=== PATIENT | female | born 1950 | race Caucasian/White ===

== ENCOUNTER 2016-05-28 15:54 | Emergency (ER) | payer OTHER ==
[~2016-05-28] VITALS: Ht 165.1 cm; Wt 70.3 kg
[~2016-05-28 15:54] MED LIST: FUROSEMIDE20 MG PO; HYDROCORTISONE10 MG PO; KEFLEX500 MG PO; LEVOTHYROXIN0.175 MG PO; MULTIVITAMIN1 TAB PO; PERCOCET 325 MG1 TA2 PO
--- NOTE | 2016-05-28 16:57 | ED UPPER/LOWER EXTREMITY COMPL ---
History of Present Illness General Chief Complaint: Foot or Ankle Injury Stated Complaint: FOOT INJURY Source: patient Exam Limitations: no limitations Vital Signs & Intake/Output Vital Signs & Intake/Output ED Intake and Output 05/29 0000 05/28 1200 Intake Total Output Total Balance Patient 155 lb Weight Allergies Coded Allergies: ciprofloxacin (Severe, CAN'T BREATHE PER PT 05/28/16) codeine (Intermediate, HALLUCINATE PER PT 05/28/16) prednisone (Intermediate, HALLUCINATE PER PT 05/28/16) Reconcile Medications Furosemide 20 MG TABLET 1 TAB PO DAILY DIURETIC (Reported) Hydrocortisone 10 MG TABLET 1 TAB PO DAILY UNKNOWN (Reported) Levothyroxine Sodium 175 MCG TABLET 1 TAB PO DAILY THYROID (Reported) Meloxicam (Mobic) 7.5 MG TABLET 1 TAB PO DAILY INFLAMMATION Triage Note: TRIAGE: PT TO ER C/C PAIN TO L FOOT, ONSET SUNDAY MORNING, CONSTANT AND WORSENING SINCE ONSET. STATES WOKE UP WITH THE PAIN. DENIES ANY INJURY. STATES "I DON'T SEE ANYTHING BUT THAT DOESN'T MEAN THERE ISN'T SOMETHING THERE." PREFERS TO WAIT FOR EVAL BEFORE TAKING ANY PAIN MEDICATIONS. Triage Nurses Notes Reviewed? yes HPI: 65-year-old female with left posterior ankle pain at the Achilles region radiating into the heel that started this morning. She woke up with the symptoms, it is hard to walk and weight-bear. She is limping. She does not recall any injury or any trauma to the area previously. She has no numbness no weakness. She feels as though the ankle and posterior Achilles region is swollen. She is able to move the foot up and down. She has no knee pain. No redness. No history of gout. No fever or systemic symptoms (GLORIA CHEN,BRANDIN) Past History Travel History Traveled to [place] past 21 day No Medical History Any Pertinent Medical History? 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 No (BRANDIN CALERO) Review of Systems Review of Systems Constitutional: Reports: see HPI. EENTM: Reports: no symptoms. Respiratory: Reports: no symptoms. Cardiovascular: Reports: no symptoms. Gastrointestinal/Abdominal: Reports: no symptoms. Genitourinary: Reports: no symptoms. Musculoskeletal: Reports: see HPI. Skin: Reports: no symptoms. Neurological/Psychological: Reports: no symptoms. Hematologic/Endocrine: Reports: no symptoms. Immunological: Reports: no symptoms. All Other Systems: Reviewed and Negative (BRANDIN CALERO) Physical Exam Physical Exam General Appearance: well developed/nourished Comments: Well-developed well-nourished no apparent distress. HEENT: Atraumatic, extraocular motion intact Neck: Supple, no lymphadenopathy Back: Nontender Respiratory: No respiratory distress Extremities: No edema, full range of motion Neuro: Alert and oriented x3 Psych: Mood affect normal, normal memory normal judgment. Skin: Warm and dry, no rash on exposed skin Left lower extremity, tenderness to the left Achilles region and its insertion into the calcaneus. There is mild swelling in this area. There is no functional or palpable defect. Mild tenderness along the calcaneus medially and laterally, the plantar fascia insertion site is also mildly tender on palpation. There is no erythema or warmth. There is no ankle joint effusion. Neurovascularly intact (BRANDIN CALERO) Progress Differential Diagnosis: arterial insufficiency, cellulitis, CHF, compartment syndrome, contusion, dislocation, DVT, fracture, gout, septic arthritis, sprain, tendon injury Plan of Care: Orders Procedure Date/time Status XRY-ANKLE 3 OR MORE VIEWS L 05/28 1642 Active Diagnostic Imaging: Viewed by Me: Radiology Read. Discussed w/RAD: Radiology Read. Radiology Impression: PATIENT: MADHU HALL PRESENT AGE: 65 PATIENT ACCOUNT NO: [id number] : 48 LOCATION: [facility] ORDERING PHYSICIAN: BRANDIN CHEN SERVICE DATE: 05/28/16 EXAM TYPE : RAD - XRY-ANKLE 3 OR MORE VIEWS L EXAMINATION: XR ANKLE, LEFT CLINICAL INFORMATION: Posterior pain without trauma. COMPARISON: None TECHNIQUE: AP, lateral, and mortise views of the left ankle. FINDINGS: Bony alignment and mineralization are normal. The ankle mortise is intact. No fracture or dislocation is seen. Boehler's angle is normal. There are moderate posterior and plantar calcaneal spurs. There is no left ankle joint effusion. There is moderate soft tissue swelling adjacent to the medial malleolus. IMPRESSION: 1. No left ankle fracture, dislocation or joint effusion is seen. 2. There is moderate soft tissue swelling adjacent to the medial malleolus. 3. There are moderate posterior and plantar calcaneal spurs. DICTATED BY: DALE KRISHNAMURTHY MD DATE/TIME DICTATED:05/28/161723 COLLECTION TEAM LEAD:MARYCRUZ DATE/TIME TRANSCRIBED:05/28/161723 Comments: Likely Achilles tendinitis and plantar fasciitis. Recommend Isidro wrap which was applied, NSAIDs, rest ice, given prescription for a walker as she is having trouble ambulating. Orthopedic follow-up in one week (BRANDIN CALERO) Departure Departure Disposition: HOME OR SELF CARE Condition: Stable Clinical Impression Primary Impression: Achilles tendinitis of left lower extremity Secondary Impressions: Plantar fasciitis of left foot Referrals: ZENA CLEMONS,DA Sethi (PCP/Family) ROSANGELA CLEMONS,SATISH Reyes Additional Instructions: Rest, ice, compression (isidro wrap), elevation. Use walker as needed Take Mobic daily for inflammation, stop your Aleve while you're taking the Mobic. Gradual return to activity as tolerated. Follow-up with orthopedist in one to 2 weeks if no better. Departure Forms: Customer Survey General Discharge Information Prescriptions: Current Visit Scripts Meloxicam (Mobic) 1 TAB PO DAILY #30 TAB (BRANDIN CALERO) PA/TIGHTENING MACHINE OPERATOR Co-Sign Statement Statement: ED Attending supervision documentation- [X] I saw and evaluated the patient. I have also reviewed all the pertinent lab results and diagnostic results. I agree with the findings and the plan of care as documented in the PA's/TIGHTENING MACHINE OPERATOR's documentation. [X] I have reviewed the ED Record and agree with the PA's/TIGHTENING MACHINE OPERATOR's documentation. [] Additions or exceptions (if any) to the PAs/TIGHTENING MACHINE OPERATOR's note and plan are summarized below: [] (MARKUS CLEMONS,VAHID Dunbar)
[2016-05-28] MEDS ORDERED: LEVOTHYROXINE175 MCG PO (17:12)
[2016-05-28] MEDS ORDERED: FUROSEMIDE20 M1 PO (17:13)
[2016-05-28] MEDS ORDERED: HYDROCORTISONE10 M2 PO (17:13)
--- NOTE | 2016-05-28 17:30 | RADIOLOGY REPORT ---
EXAMINATION: XR ANKLE, LEFT CLINICAL INFORMATION: Posterior pain without trauma. COMPARISON: None TECHNIQUE: AP, lateral, and mortise views of the left ankle. FINDINGS: Bony alignment and mineralization are normal. The ankle mortise is intact. No fracture or dislocation is seen. Boehler's angle is normal. There are moderate posterior and plantar calcaneal spurs. There is no left ankle joint effusion. There is moderate soft tissue swelling adjacent to the medial malleolus. IMPRESSION: 1. No left ankle fracture, dislocation or joint effusion is seen. 2. There is moderate soft tissue swelling adjacent to the medial malleolus. 3. There are moderate posterior and plantar calcaneal spurs.
[2016-05-28 17:39] VITALS: BP 111/53
[2016-05-28] MEDS ORDERED: MOBIC7.5 M1 PO (17:39)
== END 2016-05-28 17:55 ==
LOC: ERH 15:54
DX: M76.62 Achilles tendinitis, left leg (principal); M72.2 Plantar fascial fibromatosis
CPT/HCPCS: 73610-LT

== ENCOUNTER 2017-07-20 12:12 | Emergency (ER) | payer OTHER ==
[~2017-07-20] VITALS: Ht 165.1 cm; Wt 63.5 kg
[~2017-07-20 12:12] MED LIST changes: +FUROSEMIDE20 M1 PO; +HYDROCORTISONE10 M2 PO; +LEVOTHYROXINE175 MCG PO; +MOBIC7.5 M1 PO
--- NOTE | 2017-07-20 12:20 | ED MVC/FALL/TRAUMA COMPLAINT ---
History of Present Illness General Chief Complaint: Fall Stated Complaint: BIBA FALL Source: patient, family, old records, EMS Exam Limitations: no limitations Vital Signs & Intake/Output Vital Signs & Intake/Output Vital Signs Date Time Temp Pulse Resp B/P B/P Pulse O2 O2 Flow FiO2 Mean Ox Delivery Rate 07/20 1218 98.4 76 18 122/68 96 Room Air Allergies Coded Allergies: ciprofloxacin (Severe, CAN'T BREATHE PER PT 05/28/16) codeine (Intermediate, HALLUCINATE PER PT 05/28/16) prednisone (Intermediate, HALLUCINATE PER PT 05/28/16) Reconcile Medications Furosemide 20 MG TABLET 1 TAB PO DAILY DIURETIC (Reported) Hydrocortisone 10 MG TABLET 1 TAB PO DAILY UNKNOWN (Reported) Levothyroxine Sodium 175 MCG TABLET 1 TAB PO DAILY THYROID (Reported) Meloxicam (Mobic) 7.5 MG TABLET 1 TAB PO DAILY INFLAMMATION Triage Nurses Notes Reviewed? yes HPI: Patient tripped over the curb and hit the left side of her face on the sidewalk. There is no loss of consciousness. Patient denies any other injury. Patient complains of a throbbing pain to the left side of her face. There is no radiation. She rates the pain as moderate on the pain scale. There is no headache. There is no blurry vision. There is no nausea or vomiting. Past History Travel History Traveled to [place] past 21 day No Medical History Any Pertinent Medical History? 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 No Review of Systems Review of Systems Constitutional: Reports: no symptoms. Eyes: Reports: no symptoms. Ears, Nose, Throat, Mouth: Reports: no symptoms. Respiratory: Reports: no symptoms. Cardiovascular: Reports: no symptoms. Musculoskeletal: Reports: no symptoms. Neurological/Psychological: Reports: no symptoms. Physical Exam Physical Exam General Appearance: well developed/nourished, alert, awake, mild distress Head: contusions, ecchymosis Eyes: Bilateral: PERRL, EOMI. Ears, Nose, Throat, Mouth: hearing grossly normal, moist mucous membrane Neck: normal inspection, supple, full range of motion, no midline tenderness Respiratory: normal breath sounds, chest non-tender, no respiratory distress, lungs clear Cardiovascular: regular rate/rhythm, normal peripheral pulses Gastrointestinal: normal bowel sounds, soft, non-tender, no organomegaly Back: normal inspection, normal range of motion Extremities: normal range of motion, pelvis stable Neurologic/Psych: no motor/sensory deficits, awake, alert, oriented x 3, normal mood/affect Skin: intact, normal color, warm/dry Core Measures ACS in differential dx? No CVA/TIA Diagnosis No Sepsis Present: No Sepsis Focused Exam Completed? No Progress Differential Diagnosis: C/T/L spine injury, ICH Plan of Care: Orders Procedure Date/time Status CT HEAD WO IV CONTRAST 07/[address] MAXILLOFACIAL W/O CON 07/20 1220 Active Diagnostic Imaging: Viewed by Me: CT Scan. Discussed w/RAD: CT Scan. Departure Departure Disposition: HOME OR SELF CARE Condition: Stable Clinical Impression Primary Impression: Fracture of lateral wall of orbit Referrals: Alex CLEMONS,David Cintron (PCP/Family) Stacy CLEMONS,Allen Alvarado Additional Instructions: FOLLOW UP WITH ENT TAKE ANTIBIOTICS DIRECTED RETURN IF SYMPTOMS WORSENOR FOR ANY CONCERNS Departure Forms: Customer Survey General Discharge Information Prescriptions: Current Visit Scripts Amoxicillin 1 CAP PO TID #30 CAP
--- NOTE | 2017-07-20 13:43 | CT SCAN REPORT ---
EXAMINATION: CT HEAD WITHOUT CONTRAST CT FACIAL BONES WITHOUT CONTRAST CLINICAL INFORMATION: Fall, facial injury. Assess for fracture or intracranial hemorrhage. COMPARISON: MRI scan of the brain 07/05/2016. CT scan of the head 08/27/2008. TECHNIQUE: Multidetector CT imaging of the head and facial bones was performed without the use of intravenous contrast. Coronal and sagittal reformatted images were generated at the technologist workstation. DLP: 1214.97 mGy-cm. FINDINGS: CT head: There is no evidence of acute intracranial hemorrhage or territorial infarction. No abnormal mass-effect or midline shift is seen. Hoskins to white matter differentiation is well preserved. No extra-axial fluid collections are identified. The ventricles and sulci appear normal. There are multiple patchy areas of low-attenuation in the periventricular and subcortical white matter, consistent with mild chronic microvascular ischemic changes. There are lacunar infarcts in the bilateral basal ganglia. The study redemonstrates the sequelae of the right frontal temporal craniotomy which are unchanged. Grossly, the expanded pituitary fossa with pituitary mass appears stable. There is a fracture of the left lateral orbit and anterior and posterolateral maxillary sinus flores, and there is a fluid level in the left maxillary sinus (see below). The mastoid air cells are well-aerated. The other paranasal sinuses are clear. CT facial bones: There is a minimally displaced fracture of the lateral wall of the left orbit, and there is mild widening of the left frontozygomatic suture. There are minimally displaced fractures of the anterior and posterolateral flores of the left maxillary sinus. The lateral wall fracture extends into the posterior floor of the orbit. No entrapment of the inferior rectus muscle is seen through the fracture line. There is a fluid level in the left maxillary sinus. Subcutaneous air and soft tissue swelling are noted over the left malar region. The mandible and mandibular condyles are intact. The pterygoid plates, zygomatic arches and lamina papyracea are intact. The bony orbital rims are intact. The nasal bones are intact. The other paranasal sinuses are well-aerated. No air-fluid levels are seen. There is minimal leftward deviation of the nasal septum. The ostiomeatal complexes are clear. The right ethmoid roof is higher compared to the left. The carotid canals are normally covered by bone. The patient is edentulous. The mastoid air cells and visualized middle ear cavities are well-aerated. The intraorbital structures are normal. The TMJs are unremarkable. IMPRESSION: 1. There are acute fractures of the left lateral orbital wall and the posterior floor of the left orbit. There are also fractures of the left anterior and posterolateral maxillary sinus flores. A fluid level is seen in the left maxillary sinus. The intraorbital structures are unremarkable. 2. The pituitary fossa is expanded, and appear similar compared to prior imaging. There are sequelae of a right frontotemporal craniotomy. 3. There are no acute intracranial bleeds or territorial infarcts. 4. This critical result was discussed with Chente Rocah by telephone on 07/20/2017 at 1:30 PM and it was ascertained that the content and urgency of the report was understood at the time of direct communication.
[2017-07-20 13:55] VITALS: BP 145/80
[2017-07-20] MEDS ORDERED: AMOXICILLIN250 M3 PO (13:56)
== END 2017-07-20 14:16 ==
LOC: ERH 12:12
DX: S02.82XA Fracture of other specified skull and facial bones, left side, initial encounter for closed fracture (principal); W18.09XA Striking against other object with subsequent fall, initial encounter; Y92.9 Unspecified place or not applicable; Y93.9 Activity, unspecified
CPT/HCPCS: 90471; 90714; J3101

== ENCOUNTER 2017-10-09 15:54 | Emergency (ER) | payer OTHER ==
[~2017-10-09] VITALS: Ht 165.1 cm; Wt 74.8 kg
[~2017-10-09 15:54] MED LIST changes: +AMOXICILLIN250 M3 PO
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
--- NOTE | 2017-10-09 17:01 | CT SCAN REPORT ---
EXAMINATION: CT HEAD WITHOUT CONTRAST CLINICAL INFORMATION: Status post fall. Rule out intracranial hemorrhage. COMPARISON: Head CT from 07/20/2017. TECHNIQUE: Contiguous axial imaging was performed from the skull base to vertex without intravenous administration of contrast. DLP: 617.5 mGy-cm FINDINGS: There is no evidence of acute intracranial hemorrhage or territorial infarction. No abnormal mass effect or midline shift is seen. Hoskins to white matter differentiation is well preserved. No extra-axial fluid collections are identified. A large heterogeneous mixed solid and cystic mass involving the sella and suprasellar region results in significant surrounding bony remodeling, as noted on prior imaging, consistent with a known pituitary macroadenoma. The mass is fairly similar in appearance when compared to the prior CT exam. The ventricles are normal in size. There are chronic-appearing lacunar infarcts in the internal capsules bilaterally. Chronic fracture deformity of the anterior wall of the left maxillary sinus visible. Post craniotomy changes present on the right side. The soft tissues are normal. The mastoid air cells and visualized portions of the paranasal sinuses are well aerated. IMPRESSION: No acute intracranial hemorrhage or territorial infarction. 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 Postcraniotomy changes. Chronic-appearing lacunar infarcts in the internal capsules bilaterally.
[2017-10-09 17:07] LABS: ABSOLUTE BASOPHIL COUNT 0 /CUMM (0.0-0.2); ABSOLUTE EOSINOPHIL COUNT 0 /CUMM (0.0-0.7); ABSOLUTE LYMPH COUNT 1.2 /CUMM (1.2-3.4); ABSOLUTE MONOCYTE COUNT 0.2 /CUMM (0.10-0.60); BASOPHIL % 0.3 % (0.0-2.0); EOSINOPHIL % 0.9 % (0-5); HEMATOCRIT 32.6 % (37-47); MEAN CORPUSCULAR HGB 31.6 PG (27.0-31.0); MEAN CORPUSCULAR HGB CONC 35.3 G/DL (33.0-37.0); MEAN CORPUSCULAR VOLUME 89.5 FL (81.0-99.0); MEAN PLATELET VOLUME 9.3 FL (7.4-10.4); PLATELET COUNT 102 /CUMM (130-400); RBC DISTRIBUTION WIDTH 13.1 % (11.5-14.5); RED BLOOD CELL CT 3.64 /CUMM (4.20-5.40); WHITE BLOOD CELL COUNT 3.4 /CUMM (4.8-10.8)
[2017-10-09 17:09] LABS: GRANULOCYTE % 57.2 % (42.2-75.2)
[2017-10-09 17:20] VITALS: BP 105/56
== END 2017-10-09 19:17 ==
LOC: ERH 15:54
PROVIDERS: Physician Assistant
DX: E87.6 Hypokalemia (principal); R53.83 Other fatigue
CPT/HCPCS: 93005; 93010